=== PATIENT | female | born 1960 | race African-American/Black ===

== ENCOUNTER → 2017-01-01 | Outpatient (CLI) | payer OTHER ==
[~2017-01-01] MED LIST: AMLO10TA2 PO; HYDR25TA5 PO; LISI10TA PO; LISI20TA PO; LISI40TA PO; NYST15T TOPICAL
[2017-01-01 09:40] LABS: HDL CHOLESTEROL 46.2 MG/DL (40.0-60.0)
== END ==
LOC: CLAB 08:40
PROVIDERS: ATTEND Nurse Practitioner Family
DX: E78.5 Hyperlipidemia, unspecified (principal); E66.9 Obesity, unspecified
CPT/HCPCS: 36415; 80061; 84443

== ENCOUNTER → 2017-01-07 | Outpatient (CLI) | payer OTHER ==
[2017-01-07 10:16] LABS: AUTOMATED NEUTROPHIL # 4.3 TH/MM3 (1.8-7.7); BASOPHIL # 0.1 TH/MM3 (0-0.2); EOSINOPHIL # 0.1 TH/MM3 (0-0.4); EOSINOPHIL % 1.4 % (0.0-4.0); HEMATOCRIT 31.7 % (35.0-46.0); HEMO FLAGS DIFF FINAL; LYMPH % 34.8 % (9.0-44.0); LYMPHOCYTE # 2.7 TH/MM3 (1.0-4.8); MEAN CELL VOLUME 66.6 FL (80.0-100.0); MEAN CORPUSCULAR HEMOGLOBIN 20.6 PG (27.0-34.0); MEAN CORPUSCULAR HGB CONC 30.9 % (32.0-36.0); MONO % 7.2 % (0.0-8.0); NEUT % 55.6 % (16.0-70.0); PLATELET COUNT 457 TH/MM3 (150-450); RED BLOOD COUNT 4.76 MIL/MM3 (4.00-5.30); RED CELL DISTRIBUTION WIDTH 19.5 % (11.6-17.2); WHITE BLOOD COUNT 7.8 TH/MM3 (4.0-11.0)
[2017-01-07 10:48] LABS: ALKALINE PHOSPHATASE 77 U/L (45-117); ALT (GPT) 15 U/L (10-53); TOTAL BILIRUBIN ADULT 0.3 MG/DL (0.2-1.0)
[2017-01-07 10:55] LABS: ANION GAP 7 MEQ/L (5-15); AST (GOT) 21 U/L (15-37); BICARBONATE 28.9 MEQ/L (21.0-32.0); BLOOD UREA NITROGEN 14 MG/DL (7-18); CHLORIDE 106 MEQ/L (98-107); GLOMERULAR FILTRATION RATE 67 ML/MIN (>89); GLUCOSE,FASTING 76 MG/DL (74-99); POTASSIUM 3.7 MEQ/L (3.5-5.1); SODIUM (NA) 142 MEQ/L (136-145)
== END ==
LOC: CLAB 09:49
PROVIDERS: ATTEND Nurse Practitioner Family
DX: D64.9 Anemia, unspecified (principal); I10 Essential (primary) hypertension
CPT/HCPCS: 36415; 80053; 85025

== ENCOUNTER → 2017-01-18 | Outpatient (CLI) | payer OTHER ==
[~2017-01-18] MED LIST changes: -HYDR25TA5 PO; -LISI10TA PO; -LISI40TA PO; -NYST15T TOPICAL
--- NOTE | 2017-01-18 16:49 | RADRPT ---
EXAM DATE/TIME: 01/18/2017 14:52 [facility] COMPARISON: No previous studies available for comparison. INDICATIONS : Menorrhagia. MEDICAL HISTORY : Hypercholesterolemia. Hypertension. Ulcer. Diabetes. Anemia. SURGICAL HISTORY : section. ENCOUNTER: Initial ACUITY: 3 months PAIN SCORE: 0/10 LOCATION: Bilateral pelvis MEASUREMENTS: TRANSABDOMINAL: ENDOMETRIAL STRIPE: 13 mm RIGHT OVARY: 2.5 x 1.6 x 1.3 cm FINDINGS: UTERUS: The uterus is enlarged measuring 13.8 x 7.7 x 7.5 cm. The myometrium is heterogeneous. T he endometrial echo complex is thickened at 1.3 cm. There is a 0.6 cm nabothian cyst seen at the cerv ix. RIGHT OVARY: Ovary contains no mass or significant cystic lesion. LEFT OVARY: Ovary contains no mass or significant cystic lesion. MISCELLANEOUS: No free fluid. CONCLUSION: 1. Enlarged heterogenous uterus without focal masses. This likely represents leiomyomatous change. 2. Thickening of the endometrial complex. This is nonspecific. Hyperplasia and neoplasm could have t his appearance. Neil Richter MD on January 18, 2017 at 16:41 Board Certified Radiologist. This report was verified electronically.
== END ==
LOC: HRAD 14:25
PROVIDERS: ATTEND Family Medicine
DX: N92.0 Excessive and frequent menstruation with regular cycle (principal)
CPT/HCPCS: 76830; 76856

== ENCOUNTER 2017-02-24 00:07 | Inpatient (IN) | payer OTHER ==
[~2017-02-24] VITALS: Ht 162.6 cm; Wt 107.0 kg
[2017-02-24] VITALS (12 sets, daily range): BP systolic 91–220; BP diastolic 56–100; PULSE 64–78; RESP 16–20; TEMP 97.3–97.5; O2SAT 94–100
[~2017-02-24 00:07] MED LIST changes: +HYDR25TA5 PO; -LISI20TA PO; +LISI40TA PO; +NYST15T TOPICAL
--- NOTE | 2017-02-24 01:19 | PD ---
HPI Chief Complaint: Altered Mental Status Time Seen by Provider: 01:02 Travel History International Travel<30 days: No Contact w/Intl Traveler<30days: No Traveled to known affect area: No History of Present Illness HPI The patient is a 56 year old female who presents to the [facility] emergency department with a history of confusion and slightly slurred speech that was first noticed by her daughter at approximately 9:50 PM this evening. The patient was out with her daughter cleaning. Her daughter owns a cleaning company. Her mother was noted to be unsteady on her feet. She was confused and picking at the air, not acting like her usual self and cleaning. The patient's daughter reports that she has not been well for the last 2 days. She had been complaining of a stomach ache and has had nausea and vomiting 1 yesterday. She has not had any diarrhea. The patient denies any acute complaints at this time. The patient is confused and has difficulty staying on track with following commands and answering questions. The patient's history is mainly obtained from the patient's daughter as the patient has difficulty recalling her medical history as well as any of her recent symptoms. On review of systems, the patient's daughter denies her having any fever, cough, congestion, complaints of neck pain, chest pain, or shortness of breath. She has not had any known diarrhea. She is unsure when she last moved her bowels. She denies having any urinary symptoms. She denies having any known one-sided weakness, facial droop, dizziness, or difficulty with word finding ability. Her denies her drinking any alcohol or using any street drugs. Her daughter denies her taking any new [id number] medications or other new prescribed medicines. [facility], [facility] Past Medical History Narrative Medical The patient's past medical history is significant for hypertension, hyperlipidemia, and anemia. The patient has no known prior history of TIA or cerebrovascular accident. Anemia: Yes Cardiovascular Problems: Yes (HTN) Diabetes: No Hypertension: Yes (hasn't taken for approx 2 days or so) : 2 Para: 2 Past Surgical History Narrative Surgical The patient's past surgical history is reportedly none. Surgical History: No Previous Surgery Social History Alcohol Use: No Tobacco Use: No Substance Use: No Allergies-Medications (Allergen,Severity, Reaction): Coded Allergies: No Known Allergies (Verified , 02/24/17) Reported Meds & Prescriptions Reported Meds & Active Scripts Active Hydrochlorothiazide 25 Mg Tab 25 Mg PO DAILY Lisinopril 40 Mg Tab 40 Mg PO DAILY Nystatin Topical (Nystatin) 100,000 unit/gm Cream 1 Applic TOPICAL BID Amlodipine (Amlodipine Besylate) 10 Mg Tab 10 Mg PO DAILY She is followed through the patient assistance program for her primary care. Review of Systems Except as stated in HPI: all other systems reviewed are Neg General / Constitutional: No: Fever Eyes: No: Visual changes HENT: No: Headaches Cardiovascular: No: Chest Pain or Discomfort Respiratory: No: Shortness of Breath Gastrointestinal: Positive: Nausea, Vomiting, Abdominal Pain, Loss of Appetite , No: Diarrhea, Changes in Bowel Habits, Indigestion Genitourinary: No: Dysuria Musculoskeletal: No: Pain Skin: No Rash Neurologic: Positive: Weakness (generalized weakness), Change in Mentation, Slurred Speech, No: Focal Abnormalities, Sensory Disturbance Psychiatric: No: Depression Endocrine: No: Polydipsia Hematologic/Lymphatic: No: Easy Bruising Physical Exam Narrative General: The patient is a well-developed well-nourished female in no acute distress. Head and Neck exam: Head is normocephalic atraumatic. Eyes: EOMI, pupils are equal round and reactive to light. Nose: Midline septum with pink mucous membranes Mouth: Dentition unremarkable. Moist mucus membranes. Posterior oropharynx is not erythematous. No tonsillar hypertrophy. Uvula midline. Airway patent. Neck: No palpable lymphadenopathy. No nuchal rigidity. No thyromegaly. Cardiovascular: Regular rate and rhythm without murmurs, gallops, or rubs. Lungs: Clear to auscultation bilaterally. No wheezes, rhonchi, or rales. Abdomen: Soft, without tenderness to palpation in all 4 quadrants of the abdomen. No guarding, rebound, or rigidity. Normal bowel sounds are audible. No tenderness on palpation of McBurney's point. Negative High View sign. Extremities: No clubbing, cyanosis, or edema. 2+ pulses in all 4 extremities. Back: No costovertebral angle tenderness to palpation. Neurologic Exam: Cranial nerves 2-12 were intact on exam. Strength is 5/5 in all 4 extremities. No sensory deficits noted. The patient is oriented to person, however otherwise seems confused on examination. The patient has difficulty staying on task to perform the formal neurologic examination, however when she is redirected she is able to cooperate fully. She seems to be easily distracted. Skin Exam: No rash noted. Intact skin that is warm and dry. Data Data Last Documented VS Vital Signs Date Time Temp Pulse Resp B/P Pulse Ox O2 Delivery O2 Flow Rate FiO2 02/24/17 03:34 72 16 145/86 Room Air 02/24/17 02:32 97 02/24/17 00:13 97.5 Orders Electrocardiogram (02/24/17 01:05) Complete Blood Count With Diff (02/24/17 01:05) Comprehensive Metabolic Panel (02/24/17 01:05) Creatine Kinase (Cpk) (02/24/17 01:05) Ckmb (Isoenzyme) Profile (02/24/17 01:05) Troponin I (02/24/17 01:05) B-Type Natriuretic Peptide (02/24/17 01:05) Prothrombin Time / Inr (Pt) (02/24/17 01:05) Act Partial Throm Time (Ptt) (02/24/17 01:05) Lipase (02/24/17 01:05) Urinalysis - C+S If Indicated (02/24/17 01:05) Magnesium (Mg) (02/24/17 01:05) Ammonia (02/24/17 01:05) Thyroid Stimulating Hormone (02/24/17 01:05) Chest, Single Ap (02/24/17 01:05) Ct Brain W/O Iv Contrast(Rout) (02/24/17 01:05) Iv Access Insert/Monitor (02/24/17 01:05) Ecg Monitoring (02/24/17 01:05) Oximetry (02/24/17 01:05) Drug Screen, Random Urine (02/24/17 01:05) Alcohol (Ethanol) (02/24/17 01:05) Cath For Specimen (02/24/17 01:08) Sodium Chlorid 0.9% 500 Ml Inj (Ns 500 M (02/24/17 01:30) Sodium Chlor 0.9% 1000 Ml Inj (Ns 1000 M (02/24/17 02:45) Sodium Chlorid 0.9% 500 Ml Inj (Ns 500 M (02/24/17 03:45) CKMB (02/24/17 02:45) CKMB% (02/24/17 02:45) Admit Order (Ed Use Only) (02/24/17 03:59) Labs Laboratory Tests Test 02/24/17 02/24/17 02/24/17 01:19 02:45 03:40 White Blood Count 13.9 TH/MM3 Red Blood Count 4.76 MIL/MM3 Hemoglobin 10.6 GM/DL Hematocrit 32.7 % Mean Corpuscular Volume 68.8 FL Mean Corpuscular Hemoglobin 22.4 PG Mean Corpuscular Hemoglobin 32.5 % Concent Red Cell Distribution Width 21.4 % Platelet Count 496 TH/MM3 Mean Platelet Volume 9.3 FL Neutrophils (%) (Auto) 66.8 % Lymphocytes (%) (Auto) 21.8 % Monocytes (%) (Auto) 10.7 % Eosinophils (%) (Auto) 0.3 % Basophils (%) (Auto) 0.4 % Neutrophils # (Auto) 9.2 TH/MM3 Lymphocytes # (Auto) 3.0 TH/MM3 Monocytes # (Auto) 1.5 TH/MM3 Eosinophils # (Auto) 0.0 TH/MM3 Basophils # (Auto) 0.1 TH/MM3 CBC Comment DIFF FINAL Differential Comment Prothrombin Time 11.4 SEC Prothromb Time International 1.0 RATIO Ratio Activated Partial 29.0 SEC Thromboplast Time Ammonia 16 MCMOL/L B-Type Natriuretic Peptide 4 PG/ML Sodium Level 133 MEQ/L Potassium Level 2.9 MEQ/L Chloride Level 95 MEQ/L Carbon Dioxide Level 26.4 MEQ/L Anion Gap 12 MEQ/L Blood Urea Nitrogen 51 MG/DL Creatinine 5.33 MG/DL Estimat Glomerular Filtration 10 ML/MIN Rate Random Glucose 102 MG/DL Calcium Level 8.6 MG/DL Magnesium Level 3.4 MG/DL Total Bilirubin 0.3 MG/DL Aspartate Amino Transf 19 U/L (AST/SGOT) Alanine Aminotransferase 21 U/L (ALT/SGPT) Alkaline Phosphatase 76 U/L Total Creatine Kinase 138 U/L Creatine Kinase MB 0.9 NG/ML Troponin I LESS THAN 0.02 NG/ML Total Protein 8.9 GM/DL Albumin 3.3 GM/DL Lipase 343 U/L Thyroid Stimulating Hormone 0.169 uIU/ML 3rd Gen Ethyl Alcohol Level LESS THAN 3 MG/DL Urine Color YELLOW Urine Turbidity CLOUDY Urine pH 5.5 Urine Specific [place] 1.022 Urine Protein 100 mg/dL Urine Glucose (UA) NEG mg/dL Urine Ketones NEG mg/dL Urine Occult Blood LARGE Urine Nitrite NEG Urine Bilirubin NEG Urine Urobilinogen 2.0 MG/DL Urine Leukocyte Esterase MOD Urine RBC /hpf Urine WBC 27 /hpf Urine Squamous Epithelial 4 /hpf Cells Urine Amorphous Sediment RARE Urine Bacteria MOD /hpf Urine Hyaline Casts 119 /lpf Urine Granular Casts 9 /lpf Urine Mucus MANY /lpf Microscopic Urinalysis Comment CULTURE INDICATED Urine Opiates Screen NEG Urine Barbiturates Screen NEG Urine Amphetamines Screen NEG Urine Benzodiazepines Screen NEG Urine Cocaine Screen NEG Urine Cannabinoids Screen NEG MDM Medical Decision Making Medical Screen Exam Complete: Yes Emergency Medical Condition: Yes Medical Record Reviewed: Yes Interpretation(s) Last Impressions Head CT 02/24/17104 Signed Impressions: Service Date/Time: Friday, February 24, 2017 02:36 - CONCLUSION: No acute intracranial abnormality is identified. There is periventricular white matter low attenuation likely representing chronic microvascular ischemia. Neil Gaines MD Chest X-Ray 02/24/17104 Signed Impressions: Service Date/Time: Friday, February 24, 2017 01:04 - CONCLUSION: No acute cardiopulmonary abnormality is identified. Neil Gaines MD Differential Diagnosis Alcohol versus other substance intoxication, versus delirium related to an acute infection such as a urinary tract infection, versus pneumonia, versus hepatic encephalopathy, versus other metabolic encephalopathy Narrative Course During the course of the patients emergency department visit, the patients history, examination, and differential diagnosis were reviewed with the patient. The patient had IV access obtained and blood work sent for analysis. 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 A chest x-ray, CT scan of the brain was ordered. An in and out catheterization will be done. The patient had an ECG done on arrival. The patient's ECG reveals a sinus rhythm heart rate is 71, no acute ST segment elevation. The patient is noted to have downsloping ST segments in lead 2, 3, aVF, V5, V6 with T-wave inversions in V5, V6, lead 3, aVF. The patient was initially provided a normal saline IV fluid bolus of 500 mL. The patients laboratory studies were reviewed and remarkable for BNP is within normal limits, the patient was given another fluid bolus of 1 L IV, the patient has had poor by mouth intake for the last couple of days according to her daughter. The patient had a Yang catheter placed to gravity. The patient had very little urine output noted. The patient was given a second bolus of normal saline 1 L IV fluids. CBC was remarkable for a white count of 13.9, hemoglobin 10.6, platelets 496 with 10.7 monocytes, CMP is remarkable for sodium of 133, potassium 2.9, chloride 95, BUN 51, creatinine 5.33, GFR of 10, magnesium 3.4, CPK 138, troponin I less than 0.02, total protein 8.9, albumin 3.3, lipase 343, TSH 0.169, urine drug screen is negative, alcohol level less than 3, urinalysis shows 100 protein, large occult blood, moderate leukocyte esterase, innumerable rbc's, wbc's 27, moderate bacteria, culture indicated. The patient was given Rocephin 1 g IV. Radiology studies were reviewed and remarkable for a chest x-ray that shows no acute cardiopulmonary abnormality. CT scan of the abdomen and pelvis shows no acute intracranial abnormality. The patient has. Ventricular white matter low attenuation likely representing chronic microvascular ischemia. The patient's altered mentation could be related to uremia from her acute renal failure. The patients results were discussed with the patient, including the plan of care. I explained that further testing and/ or monitoring is indicated based on the patients history, examination, and/ or laboratory findings. Therefore, I recommended admission for additional evaluation. The patient expressed understanding and was agreeable with this plan. The patient was admitted to the hospital in stable condition and [facility] Physician Communication Physician Communication The patient's case was discussed with Dr. Soria who did agree to admit the patient further evaluation and treatment at this time. Diagnosis Primary Impression: Acute renal failure Qualified Code: N17.9 - Acute renal failure, unspecified acute renal failure type Additional Impression: Altered mental status Qualified Code: R41.0 - Delirium Admitting Information Admitting Physician Requests: Admit Milagro Tanner MD Feb 24, 2017 01:19
[2017-02-24] MEDS ORDERED: SODIUM CHLORID 0.9% 500 ML INJ 500 ML IV ONE ×2 (01:30→03:45)
[2017-02-24 01:32] LABS: AUTOMATED NEUTROPHIL # 9.2 TH/MM3 (1.8-7.7); BASOPHIL # 0.1 TH/MM3 (0-0.2); BASOPHIL % 0.4 % (0.0-2.0); EOSINOPHIL % 0.3 % (0.0-4.0); HEMATOCRIT 32.7 % (35.0-46.0); HEMO FLAGS DIFF FINAL; LYMPH % 21.8 % (9.0-44.0); MEAN CELL VOLUME 68.8 FL (80.0-100.0); MEAN CORPUSCULAR HEMOGLOBIN 22.4 PG (27.0-34.0); MEAN CORPUSCULAR HGB CONC 32.5 % (32.0-36.0); MONO % 10.7 % (0.0-8.0); NEUT % 66.8 % (16.0-70.0); PLATELET COUNT 496 TH/MM3 (150-450); RED BLOOD COUNT 4.76 MIL/MM3 (4.00-5.30); RED CELL DISTRIBUTION WIDTH 21.4 % (11.6-17.2); WHITE BLOOD COUNT 13.9 TH/MM3 (4.0-11.0)
--- NOTE | 2017-02-24 01:39 | RADRPT ---
EXAM DATE/TIME: 02/24/2017 01:04 [facility] COMPARISON: No previous studies available for comparison. INDICATIONS : Shortness of breath. MEDICAL HISTORY : Hypertension. Diabetes mellitus type II. SURGICAL HISTORY : None. ENCOUNTER: Initial ACUITY: 1 day PAIN SCORE: Non-responsive. LOCATION: Bilateral chest FINDINGS: Portable AP view of the chest demonstrates a normal-sized cardiac silhouette. No effusion, consolidat ion, or pneumothorax is visualized. The bones and soft tissues demonstrate no acute abnormality. Lung s are underinflated. CONCLUSION: No acute cardiopulmonary abnormality is identified. Neil Gaines MD on February 24, 2017 at 1:35 Board Certified Radiologist. This report was verified electronically.
[2017-02-24 02:06] LABS: PROTHROMBIN TIME - PATIENT 11.4 SEC (9.8-11.6)
[2017-02-24] MEDS ORDERED: SODIUM CHLOR 0.9% 1000 ML INJ 1,000 ML IV ONE (02:45)
--- NOTE | 2017-02-24 02:46 | RADRPT ---
EXAM DATE/TIME: 02/24/2017 02:36 [facility] COMPARISON: No previous studies available for comparison. INDICATIONS : Altered mental status. Slurred speech. RADIATION DOSE: 32.82 CTDIvol (mGy) MEDICAL HISTORY : Hypertension. SURGICAL HISTORY : section. ENCOUNTER: Initial ACUITY: 1 day PAIN SCALE: 0/10 LOCATION: cranial TECHNIQUE: Multiple contiguous axial images were obtained of the head. Using automated exposure control and adj ustment of the mA and/or kV according to patient size, radiation dose was kept as low as reasonably a chievable to obtain optimal diagnostic quality images. DICOM format image data is available electro nically for review and comparison. FINDINGS: CEREBRUM: Ventricles are normal in size. There is bilateral basal ganglia calcification. Low-attenuation is pre sent in the periventricular regions bilaterally. No evidence of midline shift, mass lesion, hemorrha ge or acute infarction. No extra-axial fluid collections are seen. POSTERIOR FOSSA: The cerebellum and brainstem demonstrate no acute finding. The 4th ventricle is midline. The cerebe llopontine angle is unremarkable. EXTRACRANIAL: Visualized sinuses are clear. SKULL: The calvaria is intact. No evidence of skull fracture. CONCLUSION: No acute intracranial abnormality is identified. There is periventricular white matter low attenuatio n likely representing chronic microvascular ischemia. Neil Gaines MD on February 24, 2017 at 2:42 Board Certified Radiologist. This report was verified electronically.
[2017-02-24 03:50] LABS: ALKALINE PHOSPHATASE 76 U/L (45-117); ALT (GPT) 21 U/L (10-53); ANION GAP 12 MEQ/L (5-15); AST (GOT) 19 U/L (15-37); BICARBONATE 26.4 MEQ/L (21.0-32.0); BLOOD UREA NITROGEN 51 MG/DL (7-18); CHLORIDE 95 MEQ/L (98-107); CREATINE KINASE 138 U/L (26-192); GLOMERULAR FILTRATION RATE 10 ML/MIN (>89); MAGNESIUM 3.4 MG/DL (1.5-2.5); SODIUM (NA) 133 MEQ/L (136-145); TOTAL BILIRUBIN ADULT 0.3 MG/DL (0.2-1.0)
[2017-02-24 03:51] LABS: POTASSIUM 2.9 MEQ/L (3.5-5.1)
[2017-02-24 04:04] LABS: CKMB 0.9 NG/ML (0.5-3.6)
[2017-02-24 04:06] LABS: AMPHETAMINE, URINE NEG (NEG); BACTERIA, URINE MOD /hpf; BARBITURATES, URINE NEG (NEG); BLOOD, URINE LARGE (NEG); COCAINE, URINE NEG (NEG); COMMENT (UR) CULTURE INDICATED; CULTURE IF INDICATED CULTURE INDICATED; GLUCOSE,URINE NEG (NEG); GRANULAR CAST, URINE 9 /lpf; HYALINE CAST, URINE 119 /lpf (RARE); KETONE, URINE NEG (NEG); MUCUS URINE MANY /lpf (OCC); NITRITE,URINE NEG (NEG); PH, URINE 5.5 (5.0-8.5); SQUAMOUS EPITHELIAL CELL URINE 4 /hpf (0-5); URINE COLOR YELLOW (YELLW/STRAW)
[2017-02-24] MEDS ORDERED: POTASSIUM CHLORIDE 20 MEQ CONTROLLED RELEASE TAB PO ONE ×2 (04:15→10:30)
[2017-02-24] MEDS ORDERED: cefTRIAXone INJ 1,000 MG in SODIUM CHLORIDE 0.9% INJ 100 ML IV ONE (04:45)
[2017-02-24] MEDS ORDERED: NALOXONE HCL 0.4 MG/ML AMP IV PRN ×2 (05:00→10:00)
[2017-02-24] MEDS ORDERED: SODIUM CHLORIDE 0.9% FLUSH 10 ML FLUSH IV FLUSH PRN ×2 (05:00→10:00)
[2017-02-24] MEDS ORDERED: SODIUM CHLORIDE 0.9% FLUSH 10 ML FLUSH IV FLUSH SCH (09:00)
--- NOTE | 2017-02-24 09:46 | HHI.HP ---
[facility] Service [facility] Primary Care Physician Katie Elizabeth MD Admission Diagnosis AMS, Acute renal failure Diagnoses: (1) Acute metabolic encephalopathy (2) UTI (urinary tract infection) (3) Acute renal failure (4) Hypokalemia (5) Hypertension Chief Complaint: AMS Travel History International Travel<30 Days: No Contact w/Intl Traveler <30 Da: No Traveled to Known Affected Are: No History of Present Illness 56-year-old female with a history of hypertension, hyperlipidemia was brought in yesterday to the ED for evaluation of worsening confusion and slurred speech by daughter as well as unsteadiness on her feet. Per EMR patient was confused and picking at the air, not acting like her usual septic cleaning. Apparently, patient has been complaining of stomach ache with nausea along with 1 emesis 1 on 02/23/17 however no reported diarrhea episodes. On admission patient has elevated WBC as well as BUN/creatinine 51/5.33. Head CT as well as chest x-ray was unremarkable however she had abnormal UA. During my exam, patient although slow in her Cerner she was alert and oriented to self but not to date. She denies any chest pain or shortness of breath. Vitals stable. Review of Systems Except as stated in HPI: all other systems reviewed are Neg Past Family Social History Past Medical History Hypertension Hyperlipidemia Reflux Past Surgical History Reported Medications Hydrochlorothiazide 25 Mg Tab 25 Mg PO DAILY Lisinopril 40 Mg Tab 40 Mg PO DAILY Nystatin Topical (Nystatin) 100,000 unit/gm Cream 1 Applic TOPICAL BID Amlodipine (Amlodipine Besylate) 10 Mg Tab 10 Mg PO DAILY Allergies: Coded Allergies: No Known Allergies (Verified , 02/24/17) Family History Denies any family history of heart disease Social History Patient denies tobacco, alcohol or illicit drug intake Physical Exam Vital Signs Vital Signs Date Time Temp Pulse Resp B/P Pulse Ox O2 Delivery O2 Flow Rate FiO2 02/24/17 03:34 72 16 145/86 Room Air 02/24/17 02:32 97 Room Air 02/24/17 00:53 68 16 114/56 100 Room Air 02/24/17 00:50 Room Air 02/24/17 00:13 97.5 73 16 91/69 95 Room Air Physical Exam GENERAL: This is a well-nourished, well-developed patient, in no apparent distress. SKIN: No rashes, ecchymoses or lesions. Cool and dry. HEAD: Atraumatic. Normocephalic. No temporal or scalp tenderness. EYES: Pupils equal round and reactive. Extraocular motions intact. No scleral icterus. No injection or drainage. ENT: Nose without bleeding, purulent drainage or septal hematoma. Throat without erythema, tonsillar hypertrophy or exudate. Uvula midline. Airway patent. NECK: Trachea midline. No JVD or lymphadenopathy. Supple, nontender, no meningeal signs. CARDIOVASCULAR: Regular rate and rhythm without murmurs, gallops, or rubs. RESPIRATORY: Clear to auscultation. Breath sounds equal bilaterally. No wheezes , rales, or rhonchi. GASTROINTESTINAL: Abdomen soft, non-tender, nondistended. No hepato-splenomegaly , or palpable masses. No guarding. MUSCULOSKELETAL: Extremities without clubbing, cyanosis, or edema. No joint tenderness, effusion, or edema noted. No calf tenderness. Negative Homans sign bilaterally. NEUROLOGICAL: Awake and alert. Cranial nerves II through XII intact. Motor and sensory grossly within normal limits. Five out of 5 muscle strength in all muscle groups. Normal speech. Laboratory Laboratory Tests Test 02/24/17 02/24/17 02/24/17 01:19 02:45 03:40 White Blood Count 13.9 Red Blood Count 4.76 Hemoglobin 10.6 Hematocrit 32.7 Mean Corpuscular Volume 68.8 Mean Corpuscular Hemoglobin 22.4 Mean Corpuscular Hemoglobin 32.5 Concent Red Cell Distribution Width 21.4 Platelet Count 496 Mean Platelet Volume 9.3 Neutrophils (%) (Auto) 66.8 Lymphocytes (%) (Auto) 21.8 Monocytes (%) (Auto) 10.7 Eosinophils (%) (Auto) 0.3 Basophils (%) (Auto) 0.4 Neutrophils # (Auto) 9.2 Lymphocytes # (Auto) 3.0 Monocytes # (Auto) 1.5 Eosinophils # (Auto) 0.0 Basophils # (Auto) 0.1 CBC Comment DIFF FINAL Differential Comment Prothrombin Time 11.4 Prothromb Time International 1.0 Ratio Activated Partial 29.0 Thromboplast Time Ammonia 16 B-Type Natriuretic Peptide 4 Sodium Level 133 Potassium Level 2.9 Chloride Level 95 Carbon Dioxide Level 26.4 Anion Gap 12 Blood Urea Nitrogen 51 Creatinine 5.33 Estimat Glomerular Filtration 10 Rate Random Glucose 102 Calcium Level 8.6 Magnesium Level 3.4 Total Bilirubin 0.3 Aspartate Amino Transf 19 (AST/SGOT) Alanine Aminotransferase 21 (ALT/SGPT) Alkaline Phosphatase 76 Total Creatine Kinase 138 Creatine Kinase MB 0.9 Troponin I LESS THAN 0.02 Total Protein 8.9 Albumin 3.3 Lipase 343 Thyroid Stimulating Hormone 0.169 3rd Gen Ethyl Alcohol Level LESS THAN 3 Urine Color YELLOW Urine Turbidity CLOUDY Urine pH 5.5 Urine Specific [place] 1.022 Urine Protein 100 Urine Glucose (UA) NEG Urine Ketones NEG Urine Occult Blood LARGE Urine Nitrite NEG Urine Bilirubin NEG Urine Urobilinogen 2.0 Urine Leukocyte Esterase MOD Urine RBC Urine WBC 27 Urine Squamous Epithelial 4 Cells Urine Amorphous Sediment RARE Urine Bacteria MOD Urine Hyaline Casts 119 Urine Granular Casts 9 Urine Mucus MANY Microscopic Urinalysis Comment CULTURE INDICATED Urine Opiates Screen NEG Urine Barbiturates Screen NEG Urine Amphetamines Screen NEG Urine Benzodiazepines Screen NEG Urine Cocaine Screen NEG Urine Cannabinoids Screen NEG Date/Time Procedure Status Source Growth 02/24/17 03:40 Urine Culture Received Urine Random Urine Pending Result Diagram: 02/24/179 02/24/17244 Imaging Last Impressions Head CT 02/24/17104 Signed Impressions: Service Date/Time: Friday, February 24, 2017 02:36 - CONCLUSION: No acute intracranial abnormality is identified. There is periventricular white matter low attenuation likely representing chronic microvascular ischemia. Neil Gaines MD Chest X-Ray 02/24/17104 Signed Impressions: Service Date/Time: Friday, February 24, 2017 01:04 - CONCLUSION: No acute cardiopulmonary abnormality is identified. Neil Gaines MD Assessment and Plan Problem List: (1) Acute metabolic encephalopathy ICD Code: G93.41 Status: Acute (2) UTI (urinary tract infection) ICD Code: N39.0 Status: Acute (3) Hypokalemia ICD Code: E87.6 Status: Acute (4) Hypertension ICD Code: I10 Status: Acute Assessment and Plan 56-year-old female with Acute metabolic encephalopathy Head CT noted and review by me without any acute finding. Will check brain MRI to rule out CVA Chest x-ray noted and review by me without any cardio pulmonary disease Worsening BUN/creatinine......> questionable uremic encephalopathy Check ammonia level UDS and alcohol level within normal limit Abnormal UA.... Likely cause of encephalopathy? UTI: Status post Rocephin IV 1 in ED, continue with Rocephin daily pending urine culture Acute renal failure Appears to be prerenal Check renal ultrasound Start aggressive IV fluid hydration, avoid all nephrotoxic drugs including LEONARD inhibitor and hydrochlorothiazide Consider Consult nephrology Hypokalemia Replace electrolyte with 60 mEq 1 now Hyponatremia Continue IV fluid hydration and monitor lab in a.m. Normochromic normocytic anemia-likely of chronic disease Check iron study Hypertension Resume outpatient medications DVT prophylaxis: Bilateral SCDs Code Status Full code Discussed Condition With Patient Physician Certification 2 Midnight Certification Type: Admission for Inpatient Services Order for Inpatient Services The services are ordered in accordance with Medicare regulations or non- Medicare payer requirements, as applicable. In the case of services not specified as inpatient-only, they are appropriately provided as inpatient services in accordance with the 2-midnight benchmark. Estimated LOS (days): 2 days is the estimated time the patient will need to remain in the hospital, assuming treatment plan goals are met and no additional complications. Post-Hospital Plan: Not yet determined Problem Qualifiers (1) Acute renal failure: Qualified Code: N17.9 - Acute renal failure, unspecified acute renal failure type Rick Hampton MD Feb 24, 2017 09:46
[2017-02-24] MEDS ORDERED: ONDANSETRON HCL 4 MG/2 ML VIAL IVP PRN (10:00)
[2017-02-24] MEDS ORDERED: ACETAMINOPHEN 325 MG TAB PO PRN ×2 (10:00)
[2017-02-24] MEDS ORDERED: MAGNESIUM HYDROXIDE SUSP 30 ML CUP PO PRN (10:00)
[2017-02-24] MEDS: SODIUM CHLOR 0.9% 1000 ML INJ 1,000 ML IV SCH ×3 (10:52→20:30)
[2017-02-24] MEDS ORDERED: cloNIDine HCL 0.2 MG TAB PO PRN (12:00)
--- NOTE | 2017-02-24 12:04 | RADRPT ---
EXAM DATE/TIME: 02/24/2017 09:59 [facility] COMPARISON: No previous studies available for comparison. INDICATIONS : Increased BUN/creatinine. MEDICAL HISTORY : Hypercholesterolemia. Hypertension. Hyperlipidemia. Ulcer. Anemia. SURGICAL HISTORY : section. ENCOUNTER: Subsequent ACUITY: 1 day PAIN SCORE: 0/10 LOCATION: Bilateral flank MEASUREMENTS: RIGHT KIDNEY: 10.2 x 4.9 x 4.4 cm LEFT KIDNEY: 10.9 x 4.7 x 5.1 cm FINDINGS: RIGHT KIDNEY: Renal cortex is normal in thickness and echotexture. No hydronephrosis, stone, or mass. LEFT KIDNEY: Renal cortex is normal in thickness and echotexture. No hydronephrosis, stone, or mass. BLADDER: Within normal limits given the degree of distension. CONCLUSION: 1. Unremarkable renal ultrasound exam. No evidence for obstructive uropathy. Satnam Moulton MD on February 24, 2017 at 11:59 Board Certified Radiologist. This report was verified electronically.
[2017-02-24 16:14] LABS: TRANSFERRIN IRON PROFILE 199 MG/DL (200-360)
[2017-02-24] MEDS: SODIUM CHLORIDE 0.9% FLUSH 10 ML FLUSH IV FLUSH SCH (20:30)
--- NOTE | 2017-02-24 20:45 | EKG ---
Date Performed: 02/24/2017 Time Performed: 03:01:07 PTAGE: 56 years EKG: Sinus rhythm MODERATE ST-T ABNORMALITY PREVIOUS TRACING : 06/03/2012 09.07 Compared to prior tracing no significant change DOCTOR: Bessy Daniel Interpretating Date/Time 02/24/2017 20:44:14
[2017-02-24] MEDS: LACTOBACILLUS ACIDOPHILUS TAB PO SCH (22:27)
[2017-02-25] VITALS (7 sets, daily range): BP systolic 99–150; BP diastolic 55–81; PULSE 65–77; RESP 18–20; TEMP 98.1–99; O2SAT 97–99
[2017-02-25 07:21] LABS: AUTOMATED NEUTROPHIL # 5.8 TH/MM3 (1.8-7.7); BASOPHIL # 0.1 TH/MM3 (0-0.2); BASOPHIL % 0.6 % (0.0-2.0); EOSINOPHIL # 0.1 TH/MM3 (0-0.4); EOSINOPHIL % 0.6 % (0.0-4.0); HEMATOCRIT 26.8 % (35.0-46.0); HEMO FLAGS DIFF FINAL; LYMPHOCYTE # 2.9 TH/MM3 (1.0-4.8); MEAN CELL VOLUME 69.3 FL (80.0-100.0); MEAN CORPUSCULAR HEMOGLOBIN 22.1 PG (27.0-34.0); MEAN CORPUSCULAR HGB CONC 31.9 % (32.0-36.0); NEUT % 58.8 % (16.0-70.0); PLATELET COUNT 334 TH/MM3 (150-450); RED BLOOD COUNT 3.86 MIL/MM3 (4.00-5.30); RED CELL DISTRIBUTION WIDTH 20.8 % (11.6-17.2); WHITE BLOOD COUNT 9.8 TH/MM3 (4.0-11.0)
[2017-02-25 08:24] LABS: ALKALINE PHOSPHATASE 58 U/L (45-117); ALT (GPT) 13 U/L (10-53); ANION GAP 10 MEQ/L (5-15); AST (GOT) 9 U/L (15-37); BICARBONATE 19.8 MEQ/L (21.0-32.0); BLOOD UREA NITROGEN 38 MG/DL (7-18); CHLORIDE 110 MEQ/L (98-107); GLOMERULAR FILTRATION RATE 39 ML/MIN (>89); POTASSIUM 3.7 MEQ/L (3.5-5.1); SODIUM (NA) 140 MEQ/L (136-145); TOTAL BILIRUBIN ADULT 0.3 MG/DL (0.2-1.0)
[2017-02-25] MEDS: cefTRIAXone INJ 1,000 MG in SODIUM CHLORIDE 0.9% INJ 100 ML IV SCH (09:03)
[2017-02-25] MEDS: LACTOBACILLUS ACIDOPHILUS TAB PO SCH ×2 (09:03→22:40)
[2017-02-25] MEDS: SODIUM CHLORIDE 0.9% FLUSH 10 ML FLUSH IV FLUSH SCH ×2 (09:04→21:00)
[2017-02-25] MEDS: SODIUM CHLOR 0.9% 1000 ML INJ 1,000 ML IV SCH ×2 (09:05→17:43)
--- NOTE | 2017-02-25 11:43 | RADRPT ---
EXAM DATE/TIME: 02/25/2017 11:09 [facility] COMPARISON: CT BRAIN W/O CONTRAST, February 24, 2017, 2:36. INDICATIONS : CVA. MEDICAL HISTORY : Hypertension. SURGICAL HISTORY : None. ENCOUNTER: Initial ACUITY: 1 day PAIN SCORE: 0/10 LOCATION: Head. TECHNIQUE: Multiplanar, multisequence MRI of the brain was performed without contrast. FINDINGS: Mild periventricular and subcortical white matter small vessel ischemic changes are noted bilaterally . Old lacunar infarcts are noted within the bilateral basal ganglia and left rupa. The ventricles, sulci and cisterns are normal in size, shape and position for the patient's age. There is no acute i nfarct, acute hemorrhage, midline shift or extra-axial fluid collections. The sagittal images demons trate normal midline structures including the corpus callosum, pituitary gland and craniocervical thony ction. CONCLUSION: 1. Scattered old tiny lacunar infarcts within the bilateral basal ganglia and left rupa. 2. Mild periventricular and subcortical white matter small vessel ischemic changes bilaterally. 3. No acute infarct, acute hemorrhage, mass effect or extra-axial fluid collections. Alex Castellano MD on February 25, 2017 at 11:31 Board Certified Radiologist. This report was verified electronically.
--- NOTE | 2017-02-25 13:01 | HHI.PR ---
Subjective Remarks Follow-up metabolic encephalopathy/acute renal failure 02/25/17-patient seen and examined, improving renal indices as well as mentation. Patient states she is still having her menses and she has not gone to menopause yet although she is 56 years old and she reports DUB Objective Vitals Vital Signs Date Time Temp Pulse Resp B/P Pulse Ox O2 Delivery O2 Flow Rate FiO2 02/25/17 08:00 98.5 65 20 105/55 98 02/25/17 05:01 99.0 70 18 101/59 97 02/25/17 00:59 98.9 68 18 99/55 97 02/24/17 23:00 73 02/24/17 21:16 97.3 71 18 133/63 96 02/24/17 19:45 69 18 140/77 100 Room Air 02/24/17 15:28 64 16 113/58 98 Room Air I/O 02/24/17 02/24/17 02/24/17 02/25/17 02/25/17 02/25/17 06:59 14:59 22:59 06:59 14:59 22:59 Output Total 900 ml 800 ml Balance -900 ml -800 ml Output Urine Total 900 ml 800 ml # Bowel Movements 0 Result Diagram: 02/25/17 0644 02/25/17 0644 Imaging Last Impressions Brain MRI 02/25/17 0000 Signed Impressions: Service Date/Time: January 11:09 - CONCLUSION: 1. Scattered old tiny lacunar infarcts within the bilateral basal ganglia and left rupa. 2. Mild periventricular and subcortical white matter small vessel ischemic changes bilaterally. 3. No acute infarct, acute hemorrhage, mass effect or extra- axial fluid collections. Alex Castellano MD Head CT 02/24/17104 Signed Impressions: Service Date/Time: Friday, February 24, 2017 02:36 - CONCLUSION: No acute intracranial abnormality is identified. There is periventricular white matter low attenuation likely representing chronic microvascular ischemia. Neil Gaines MD Chest X-Ray 02/24/17104 Signed Impressions: Service Date/Time: Friday, February 24, 2017 01:04 - CONCLUSION: No acute cardiopulmonary abnormality is identified. Neil Gaines MD Renal Ultrasound 02/24/17 0000 Signed Impressions: Service Date/Time: Friday, February 24, 2017 09:59 - CONCLUSION: 1. Unremarkable renal ultrasound exam. No evidence for obstructive uropathy. Satnam Moulton MD Objective Remarks GENERAL: NAD SKIN: Warm and dry. HEAD: Normocephalic. EYES: No scleral icterus. No injection or drainage. NECK: Supple, trachea midline. No JVD or lymphadenopathy. CARDIOVASCULAR: Regular rate and rhythm without murmurs, gallops, or rubs. RESPIRATORY: Breath sounds equal bilaterally. No accessory muscle use. GASTROINTESTINAL: Abdomen soft, non-tender, nondistended. MUSCULOSKELETAL: No cyanosis, or edema. BACK: Nontender without obvious deformity. No CVA tenderness. A/P Problem List: (1) Acute metabolic encephalopathy ICD Code: G93.41 Status: Acute (2) UTI (urinary tract infection) ICD Code: N39.0 Status: Acute (3) Hypokalemia ICD Code: E87.6 Status: Acute (4) Hypertension ICD Code: I10 Status: Acute (5) Iron (Fe) deficiency anemia ICD Code: D50.9 Status: Acute (6) DUB (dysfunctional uterine bleeding) ICD Code: N93.8 Status: Acute Assessment and Plan 56-year-old female with Acute metabolic encephalopathy-improving Head CT without any acute finding. Brain MRI today 02/25/17 without any evidence of new infarct Chest x-ray without any cardio pulmonary disease Monitor ammonia level UDS and alcohol level within normal limit UTI: Status post Rocephin IV 1 in ED, continue with Rocephin daily pending urine culture Acute renal failure Improving renal indices Appears to be prerenal Normal renal ultrasound Continue aggressive IV fluid hydration, avoid all nephrotoxic drugs including LEONARD inhibitor and hydrochlorothiazide Dysfunctional uterine bleed Patient states she is still having her menses at 56yrs Check pelvic ultrasound Consult gynecology Hypokalemia-resolved status post replacement Hyponatremia Resolved with IV fluid hydration Normochromic normocytic anemia-likely of chronic disease Iron deficiency anemia Transfuse Venofer 200mg IV x 1 now Hypertension Continue outpatient medications DVT prophylaxis: Bilateral SCDs Rick Hampton MD Feb 25, 2017 13:01
[2017-02-25] MEDS ORDERED: IRON SUCROSE 100 MG/5 ML VIAL IV PUSH ONE (13:15)
[2017-02-25] MEDS ORDERED: IRON SUCROSE INJ 200 MG in SODIUM CHLORIDE 0.9% INJ 100 ML IV ONE (14:00)
--- NOTE | 2017-02-25 20:35 | PD.CONS ---
HPI Chief Complaint Vaginal bleeding Date Seen: Feb 25, 2017 Travel History International Travel<30 Days: No Contact w/Intl Traveler<30Days: No Known Affected Area: No History of Present Illness HPI Patient's 56-year-old black female para 2 eyes in the hospital for dehydration of acute renal failure and acute mental status change. 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 The patient denies taking any hormonal medication Para: 2 : 2 History Past Medical History Narrative Medical Multiple medical problems Obstetric History Obstetric History 2 vaginal deliveries Social History Alcohol Use: No Tobacco Use: No Substance Abuse: No Allergies-Medications (Allergen,Severity, Reaction): Coded Allergies: No Known Allergies (Verified , 02/24/17) Home Meds Active Scripts Hydrochlorothiazide 25 Mg Tab25 Mg PO DAILY #30 TAB Ref 3 Prov:Patricia Tobar G[employer] COMPRESSOR OPERATOR 01/29/17 Lisinopril 40 Mg Tab40 Mg PO DAILY #30 TAB Ref 3 Prov:Patricia Tobar 01/29/17 Nystatin Topical 100,000 unit/gm Cream1 Applic TOPICAL BID #15 GM Ref 2 Prov:Patricia TobarP 01/29/17 Amlodipine 10 Mg Tab10 Mg PO DAILY #30 TAB Ref 3 Prov:Patricia Tobar 12/31/16 Review of Systems General / Constitutional: No: Fever, Weight Gain, Chills, Other Eyes: No: Diploplia, Blurred Vision, Visual changes, Pain, Photophobia HENT: No: Headaches, Vertigo, Lightheadedness Cardiovascular: No: Irregular Rhythm, Chest Pain or Discomfort, Palpitations, Tachycardia, Syncope, Varicosities, Edema, Cyanosis Respiratory: No: Cough, Short of Breath, Other Gastrointestinal: No: Nausea, Vomiting, Diarrhea Genitourinary: Vaginal Bleeding, No: Decreased Urinary Output, Oliguria Musculoskeletal: No: Limited ROM, Weakness, Cramping, Edema, Pain Skin: No Rash, No Itching, No Dryness, No Lumps, No Change in Pigmentation, No Change in Nails, No Alopecia, No Lesions Neurologic: No: Weakness, Dizziness, Syncope, Focal Abnormalities, Coordination Problem, Headache, Slurred Speech, Seizures Psychiatric: No: Depression, Suicidal Ideations, Homicidal Ideation Endocrine: No: Heat Intolerance, Cold Intolerance, Polydipsia, Polyuria, Other Physical Exam Vital Signs Date Time Temp Pulse Resp B/P Pulse Ox O2 Delivery O2 Flow Rate FiO2 02/25/17 16:00 98.4 66 20 149/81 98 02/25/17 12:00 98.1 70 20 150/68 99 02/25/17 08:00 98.5 65 20 105/55 98 02/25/17 05:01 99.0 70 18 101/59 97 02/25/17 00:59 98.9 68 18 99/55 97 02/24/17 23:00 73 02/24/17 21:16 97.3 71 18 133/63 96 Narrative GENERAL: Well-nourished, well-developed obese patient. That is somewhat confused and lethargic SKIN: Warm and dry. HEAD: Normocephalic and atraumatic. EYES: No scleral icterus. No injection or drainage. ENT: No nasal drainage noted. Mucous membranes pink. Airway patent. NECK: Supple, trachea midline. No JVD. CARDIOVASCULAR: Regular rate and rhythm without murmurs, gallops, or rubs. RESPIRATORY: Breath sounds equal bilaterally. No accessory muscle use. BREASTS: Bilateral exam showed no masses , no retractions, no nipple discharge. ABDOMEN/GI: Abdomen soft obese, non-tender, bowel sounds present, no rebound, no guarding GENITOURINARY: External Genitalia: intact and normal in appearance Small amount of dark blood noted at the introitus and in the vaginal vault no red bleeding or active bleeding noted Cervix: [-Palpates as normal with a slightly open external os closed internal os] Uterus palpates is slightly enlarged approximately 12 week size is 1+ tender anteflexed No adnexal mass palpated but the exam was compromised due to her size ] EXTREMITIES: No cyanosis or edema. BACK: Nontender without obvious deformity. No CVA tenderness. NEUROLOGICAL: Awake lethargic and somewhat confused. Data Data Orders Sleeve, Knee Sequential Erick Pr (02/24/17 23:06) Remove Urinary Catheter .ONCE (02/25/17 11:41) Ot Request For Service (02/25/17 11:41) Complete Blood Count With Diff (02/26/17 06:00) Basic Metabolic Panel (Bmp) (02/26/17 06:00) Us Pelvis Comp Garment Patternmaker/Non-Preg (02/25/17 ) Consult Gynecology (02/25/17 ) Iron Sucrose Inj (Venofer Inj) (02/25/17 14:00) (Hub Use Only)Inp Phy Cons/Ref (02/25/17 ) Labs Laboratory Tests Test 02/25/17 06:44 White Blood Count 9.8 Red Blood Count 3.86 Hemoglobin 8.5 Hematocrit 26.8 Mean Corpuscular Volume 69.3 Mean Corpuscular Hemoglobin 22.1 Mean Corpuscular Hemoglobin 31.9 Concent Red Cell Distribution Width 20.8 Platelet Count 334 Mean Platelet Volume 9.2 Neutrophils (%) (Auto) 58.8 Lymphocytes (%) (Auto) 30.0 Monocytes (%) (Auto) 10.0 Eosinophils (%) (Auto) 0.6 Basophils (%) (Auto) 0.6 Neutrophils # (Auto) 5.8 Lymphocytes # (Auto) 2.9 Monocytes # (Auto) 1.0 Eosinophils # (Auto) 0.1 Basophils # (Auto) 0.1 CBC Comment DIFF FINAL Differential Comment Sodium Level 140 Potassium Level 3.7 Chloride Level 110 Carbon Dioxide Level 19.8 Anion Gap 10 Blood Urea Nitrogen 38 Creatinine 1.63 Estimat Glomerular Filtration 39 Rate Random Glucose 104 Calcium Level 8.0 Total Bilirubin 0.3 Aspartate Amino Transf 9 (AST/SGOT) Alanine Aminotransferase 13 (ALT/SGPT) Alkaline Phosphatase 58 Total Protein 6.6 Albumin 2.2 Date/Time Procedure Status Source Growth 02/24/17 03:40 Urine Culture - Preliminary Resulted Urine Random Urine NO GROWTH IN 24 HOURS. MDM Interpretation(s) Patient's 56-year-old black female para 2 as the hospital for acute renal failure and acute mental status change and dehydration, she is also noted continued menstrual flow that she says is approximately every month but some months she'll skip or miss. Patient somewhat confused and lethargic and scarred to get a straight answer about really anything from her Plan Plan to check a pelvic ultrasound which is ordered and see what the anatomy looks like. Also check an FSH to see until hormonally what her ovarian reserve is. At this time if she just continues to have periods this will eventually stop, however very thickened endometrium noted or other masses noted that she may need further HYDROGEN [employer] OPERATIONS MANAGER evaluation as an outpatient possibly endometrial biopsy Admitting diagnosis: AMS, Acute renal failure Diagnosis: dysfunctional uterine bleeding Condition: Stable Jamey Whitley II, MD Feb 25, 2017 20:35
--- NOTE | 2017-02-25 21:52 | RADRPT ---
EXAM DATE/TIME: 02/25/2017 20:10 [facility] COMPARISON: US PELVIS COMP W/TRANSVAGINAL, January 18, 2017, 14:52. INDICATIONS : Irregular vaginal bleeding. MEDICAL HISTORY : Hypercholesterolemia. Hypertension. Cardiac disorders. Hyperlipidemia. Gastrointestinal ulcer. SURGICAL HISTORY : None. ENCOUNTER: Subsequent ACUITY: 1 week PAIN SCORE: 0/10 LOCATION: Bilateral pelvis MEASUREMENTS: RIGHT OVARY: 3.2 x 2.8 x 2.6 cm UTERUS: 13.7 x 9.3 x 8.2 cm ENDOMETRIAL STRIPE: 3 mm LEFT OVARY: Non visualized FINDINGS: The uterus is enlarged and heterogeneous with multiple suspected fibroids. Largest fibroid measures u p to 7 cm in diameter. The right ovary is unremarkable. Left ovary not visualized. No free fluid. End ometrial stripe within normal limits on current exam. CONCLUSION: 1. Enlarged uterus similar in appearance to January 18, 2017 most characteristic of fibroid involvement. No adnexal mass or free fluid. Cornelius Richmond MD on February 25, 2017 at 21:45 Board Certified Radiologist. This report was verified electronically.
[2017-02-26 00:03] VITALS: BP 134/76; PULSE 69; RESP 18; TEMP 98.5; O2SAT 100
[2017-02-26 04:00] VITALS: BP 126/66; PULSE 70; RESP 16; TEMP 98.6; O2SAT 98
[2017-02-26 07:00] VITALS: PULSE 69
[2017-02-26 08:00] VITALS: BP 163/75; PULSE 68; RESP 17; TEMP 98.1; O2SAT 98
[2017-02-26] MEDS: cefTRIAXone INJ 1,000 MG in SODIUM CHLORIDE 0.9% INJ 100 ML IV SCH (08:51)
[2017-02-26] MEDS: LACTOBACILLUS ACIDOPHILUS TAB PO SCH (08:52)
[2017-02-26] MEDS: SODIUM CHLORIDE 0.9% FLUSH 10 ML FLUSH IV FLUSH SCH (08:52)
[2017-02-26 09:38] LABS: AUTOMATED NEUTROPHIL # 3.6 TH/MM3 (1.8-7.7); BASOPHIL % 0.4 % (0.0-2.0); EOSINOPHIL # 0.1 TH/MM3 (0-0.4); HEMATOCRIT 27.4 % (35.0-46.0); HEMO FLAGS DIFF FINAL; LYMPH % 39.9 % (9.0-44.0); LYMPHOCYTE # 2.9 TH/MM3 (1.0-4.8); MEAN CELL VOLUME 71.2 FL (80.0-100.0); MEAN CORPUSCULAR HEMOGLOBIN 22.4 PG (27.0-34.0); MEAN CORPUSCULAR HGB CONC 31.5 % (32.0-36.0); MONO % 8.5 % (0.0-8.0); NEUT % 49.2 % (16.0-70.0); PLATELET COUNT 347 TH/MM3 (150-450); RED BLOOD COUNT 3.85 MIL/MM3 (4.00-5.30); RED CELL DISTRIBUTION WIDTH 21.9 % (11.6-17.2); WHITE BLOOD COUNT 7.2 TH/MM3 (4.0-11.0)
[2017-02-26 09:55] LABS: BICARBONATE 18.5 MEQ/L (21.0-32.0); POTASSIUM 3.7 MEQ/L (3.5-5.1)
[2017-02-26] MEDS: SODIUM CHLOR 0.9% 1000 ML INJ 1,000 ML IV SCH (10:00)
[2017-02-26 12:00] VITALS: BP 159/72; PULSE 71; RESP 17; TEMP 98.1; O2SAT 98
--- NOTE | 2017-02-26 12:35 | HHI.PR ---
Subjective Remarks Follow-up metabolic encephalopathy/acute renal failure 02/25/17-patient seen and examined, improving renal indices as well as mentation. Patient states she is still having her menses and she has not gone to menopause yet although she is 56 years old and she reports DUB 02/26/17-patient seen and examined, alert and oriented 3. Pelvic ultrasound with evidence of fibroid. Renal indices improved. Tolerated by mouth without any competition nausea and vomiting. Objective Vitals Vital Signs Date Time Temp Pulse Resp B/P Pulse Ox O2 Delivery O2 Flow Rate FiO2 02/26/17 12:00 98.1 71 17 159/72 98 02/26/17 08:00 98.1 68 17 163/75 98 02/26/17 07:00 69 02/26/17 04:00 98.6 70 16 126/66 98 02/26/17 00:03 98.5 69 18 134/76 100 02/25/17 22:40 68 02/25/17 21:26 98.2 77 18 131/67 99 02/25/17 16:00 98.4 66 20 149/81 98 I/O 02/25/17 02/25/17 02/25/17 02/26/17 02/26/17 02/26/17 07:00 15:00 23:00 07:00 15:00 23:00 Intake Total 240 ml Output Total 800 ml Balance -800 ml 240 ml Intake Oral 240 ml Output Urine Total 800 ml # Voids 1 # Bowel Movements 0 0 Result Diagram: 02/26/17 0852 02/26/17 0852 Imaging Last Impressions Pelvis Ultrasound 02/25/17 0000 Signed Impressions: Service Date/Time: January 20:10 - CONCLUSION: 1. Enlarged uterus similar in appearance to January 18, 2017 most characteristic of fibroid involvement. No adnexal mass or free fluid. Cornelius Richmond MD Brain MRI 02/25/17 0000 Signed Impressions: Service Date/Time: January 11:09 - CONCLUSION: 1. Scattered old tiny lacunar infarcts within the bilateral basal ganglia and left rupa. 2. Mild periventricular and subcortical white matter small vessel ischemic changes bilaterally. 3. No acute infarct, acute hemorrhage, mass effect or extra- axial fluid collections. Alex Castellano MD Head CT 02/24/17 0105 Signed Impressions: Service Date/Time: Friday, February 24, 2017 02:36 - CONCLUSION: No acute intracranial abnormality is identified. There is periventricular white matter low attenuation likely representing chronic microvascular ischemia. Neil Gaines MD Chest X-Ray 02/24/17 0105 Signed Impressions: Service Date/Time: Friday, February 24, 2017 01:04 - CONCLUSION: No acute cardiopulmonary abnormality is identified. Neil Gaines MD Renal Ultrasound 02/24/17 0000 Signed Impressions: Service Date/Time: Wednesday, February 24, 2017 09:59 - CONCLUSION: 1. Unremarkable renal ultrasound exam. No evidence for obstructive uropathy. Satnam Moulton MD Objective Remarks GENERAL: NAD SKIN: Warm and dry. HEAD: Normocephalic. EYES: No scleral icterus. No injection or drainage. NECK: Supple, trachea midline. No JVD or lymphadenopathy. CARDIOVASCULAR: Regular rate and rhythm without murmurs, gallops, or rubs. RESPIRATORY: Breath sounds equal bilaterally. No accessory muscle use. GASTROINTESTINAL: Abdomen soft, non-tender, nondistended. MUSCULOSKELETAL: No cyanosis, or edema. BACK: Nontender without obvious deformity. No CVA tenderness. Procedures None A/P Problem List: (1) Acute metabolic encephalopathy ICD Code: G93.41 Status: Resolved (2) UTI (urinary tract infection) ICD Code: N39.0 Status: Acute (3) Hypokalemia ICD Code: E87.6 Status: Acute (4) Hypertension ICD Code: I10 Status: Acute (5) Iron (Fe) deficiency anemia ICD Code: D50.9 Status: Acute (6) DUB (dysfunctional uterine bleeding) ICD Code: N93.8 Status: Acute Assessment and Plan 56-year-old female with Acute metabolic encephalopathy-resolved Head CT without any acute finding. Brain MRI today 02/25/17 without any evidence of new infarct Chest x-ray without any cardio pulmonary disease Monitor ammonia level UDS and alcohol level within normal limit UTI: Currently on Rocephin daily however urine culture negative, therefore will discontinue antibiotic. Acute renal failure Resolved Appears to be prerenal Normal renal ultrasound Continue aggressive IV fluid hydration, avoid all nephrotoxic drugs including LEONARD inhibitor and hydrochlorothiazide Dysfunctional uterine bleed Patient states she is still having her menses at 56yrs Pelvic ultrasound noted a review with finding of fibroids Appreciate input from gynecology; will need outpatient follow-up Hypokalemia-resolved status post replacement Hyponatremia Resolved with IV fluid hydration Normochromic normocytic anemia-likely of chronic disease Iron deficiency anemia Transfused Venofer 200mg IV x 1 now Hypertension Continue outpatient medications DVT prophylaxis: Bilateral SCDs Rick Hampton MD Feb 26, 2017 12:35
--- NOTE | 2017-02-26 12:38 | HHI.DS ---
Discharge Summary Admission Date Feb 24, 2017 at 04:01 Discharge Date: Feb 26, 2017 Admitting Diagnosis AMS, Acute renal failure (1) Acute metabolic encephalopathy ICD Code: G93.41 (2) UTI (urinary tract infection) ICD Code: N39.0 (3) Hypokalemia ICD Code: E87.6 (4) Hypertension ICD Code: I10 (5) Iron (Fe) deficiency anemia ICD Code: D50.9 (6) DUB (dysfunctional uterine bleeding) ICD Code: N93.8 Procedures None Brief History - From Admission 56-year-old female with a history of hypertension, hyperlipidemia was brought in yesterday to the ED for evaluation of worsening confusion and slurred speech by daughter as well as unsteadiness on her feet. Per EMR patient was confused and picking at the air, not acting like her usual septic cleaning. Apparently, patient has been complaining of stomach ache with nausea along with 1 emesis 1 on 02/23/17 however no reported diarrhea episodes. On admission patient has elevated WBC as well as BUN/creatinine 51/5.33. Head CT as well as chest x-ray was unremarkable however she had abnormal UA. During my exam, patient although slow in her Cerner she was alert and oriented to self but not to date. She denies any chest pain or shortness of breath. Vitals stable. CBC/BMP: 02/26/17 0852 02/26/17 0852 Significant Findings Laboratory Tests Test 02/24/17 02/24/17 02/24/17 02/24/17 01:19 02:45 03:40 14:36 White Blood Count 13.9 TH/MM3 (4.0-11.0) Hemoglobin 10.6 GM/DL (11.6-15.3) Hematocrit 32.7 % (35.0-46.0) Mean Corpuscular Volume 68.8 FL (80.0-100.0) Mean Corpuscular Hemoglobin 22.4 PG (27.0-34.0) Red Cell Distribution Width 21.4 % (11.6-17.2) Platelet Count 496 TH/MM3 (150-450) Monocytes (%) (Auto) 10.7 % (0.0-8.0) Neutrophils # (Auto) 9.2 TH/MM3 (1.8-7.7) Monocytes # (Auto) 1.5 TH/MM3 (0-0.9) Sodium Level 133 MEQ/L (136-145) Potassium Level 2.9 MEQ/L (3.5-5.1) Chloride Level 95 MEQ/L (98-107) Blood Urea Nitrogen 51 MG/DL (7-18) Creatinine 5.33 MG/DL (0.50-1.00) Estimat Glomerular Filtration 10 ML/MIN (>89) Rate Magnesium Level 3.4 MG/DL (1.5-2.5) Troponin I LESS THAN 0.02 NG/ML (0.02-0.05) Total Protein 8.9 GM/DL (6.4-8.2) Albumin 3.3 GM/DL (3.4-5.0) Thyroid Stimulating Hormone 0.169 uIU/ML 3rd Gen (0.358-3.740) Urine Turbidity CLOUDY (CLEAR) Urine Protein 100 mg/dL (NEG-TRACE) Urine Occult Blood LARGE (NEG) Urine Leukocyte Esterase MOD (NEG) Urine WBC 27 /hpf (0-5) Urine Bacteria MOD /hpf (NONE) Urine Mucus MANY /lpf (OCC) Iron Level 26 MCG/DL (50-170) Percent Iron Saturation 9.3 % (20-50) Ammonia 45 MCMOL/L (11-32) Test 02/25/17 02/26/17 06:44 08:52 Red Blood Count 3.86 MIL/MM3 3.85 MIL/MM3 (4.00-5.30) (4.00-5.30) Hemoglobin 8.5 GM/DL 8.6 GM/DL (11.6-15.3) (11.6-15.3) Hematocrit 26.8 % 27.4 % (35.0-46.0) (35.0-46.0) Mean Corpuscular Volume 69.3 FL 71.2 FL (80.0-100.0) (80.0-100.0) Mean Corpuscular Hemoglobin 22.1 PG 22.4 PG (27.0-34.0) (27.0-34.0) Mean Corpuscular Hemoglobin 31.9 % 31.5 % Concent (32.0-36.0) (32.0-36.0) Red Cell Distribution Width 20.8 % 21.9 % (11.6-17.2) (11.6-17.2) Monocytes (%) (Auto) 10.0 % 8.5 % (0.0-8.0) (0.0-8.0) Monocytes # (Auto) 1.0 TH/MM3 (0-0.9) Chloride Level 110 MEQ/L 111 MEQ/L (98-107) (98-107) Carbon Dioxide Level 19.8 MEQ/L 18.5 MEQ/L (21.0-32.0) (21.0-32.0) Blood Urea Nitrogen 38 MG/DL (7-18) Creatinine 1.63 MG/DL (0.50-1.00) Estimat Glomerular Filtration 39 ML/MIN (>89) 74 ML/MIN (>89) Rate Calcium Level 8.0 MG/DL 7.9 MG/DL (8.5-10.1) (8.5-10.1) Aspartate Amino Transf 9 U/L (15-37) (AST/SGOT) Albumin 2.2 GM/DL (3.4-5.0) Random Glucose 144 MG/DL (74-106) Ammonia 37 MCMOL/L (11-32) Imaging Last Impressions Pelvis Ultrasound 02/25/17 0000 Signed Impressions: Service Date/Time: January 20:10 - CONCLUSION: 1. Enlarged uterus similar in appearance to January 18, 2017 most characteristic of fibroid involvement. No adnexal mass or free fluid. Cornelius Richmond MD Brain MRI 02/25/17 0000 Signed Impressions: Service Date/Time: January 11:09 - CONCLUSION: 1. Scattered old tiny lacunar infarcts within the bilateral basal ganglia and left rupa. 2. Mild periventricular and subcortical white matter small vessel ischemic changes bilaterally. 3. No acute infarct, acute hemorrhage, mass effect or extra- axial fluid collections. Alex Castellano MD Head CT 02/24/17 0105 Signed Impressions: Service Date/Time: Friday, February 24, 2017 02:36 - CONCLUSION: No acute intracranial abnormality is identified. There is periventricular white matter low attenuation likely representing chronic microvascular ischemia. Neil Gaines MD Chest X-Ray 02/24/17 0105 Signed Impressions: Service Date/Time: Friday, February 24, 2017 01:04 - CONCLUSION: No acute cardiopulmonary abnormality is identified. Neil Gaines MD Renal Ultrasound 02/24/17 0000 Signed Impressions: Service Date/Time: Friday, February 24, 2017 09:59 - CONCLUSION: 1. Unremarkable renal ultrasound exam. No evidence for obstructive uropathy. Satnam Moulton MD PE at Discharge GENERAL: NAD SKIN: Warm and dry. HEAD: Normocephalic. EYES: No scleral icterus. No injection or drainage. NECK: Supple, trachea midline. No JVD or lymphadenopathy. CARDIOVASCULAR: Regular rate and rhythm without murmurs, gallops, or rubs. RESPIRATORY: Breath sounds equal bilaterally. No accessory muscle use. GASTROINTESTINAL: Abdomen soft, non-tender, nondistended. MUSCULOSKELETAL: No cyanosis, or edema. BACK: Nontender without obvious deformity. No CVA tenderness. Hospital Course Patient admitted secondary to metabolic encephalopathy which resolved. She was also treated for UTI will IV Rocephin however prior to discharge urine culture were negative and this was discontinued. Secondary to dysfunctional uterine bleed, gynecology was consulted and a pelvic ultrasound showed evidence of fibroid. Patient will need outpatient follow-up for evaluation for possible endometrial biopsy. She was transfused 200 mg Venofer second 2 iron deficiency anemia. Renal function improved with IV fluid hydration. She was continued on her treatment for her chronic medical conditions except LEONARD inhibitor. DVT and GI prophylaxis were provided. Prior to discharge, patient's condition improved and vitals remained stable. Pt Condition on Discharge: Stable Discharge Disposition: Discharge Home Discharge Time: <= 30 minutes Discharge Instructions DIET: Follow Instructions for: Heart Healthy Diet Activities you can perform: Regular-No Restrictions Follow up Referrals: [facility] PCP Follow-up - 1 Week Continued Medications: Amlodipine (Amlodipine) 10 Mg Tab 10 MG PO DAILY Blood Pressure Management #30 Ref 3 TAB Lisinopril (Lisinopril) 40 Mg Tab 40 MG PO DAILY Blood Pressure Management #30 Ref 3 TAB Nystatin Topical (Nystatin Topical) 100,000 unit/gm Cream 1 APPLIC TOPICAL BID Infection #15 Ref 2 GM Rick Hampton MD Feb 26, 2017 12:38
== END 2017-02-26 15:58 | disposition home or self-care (01) | DRG 71 ==
LOC: NEPE 00:07 → NEDA 04:01 → N05A 20:12
PROVIDERS: ADMIT Hospitalist; ATTEND Hospitalist
DX: G93.41 Metabolic encephalopathy (principal); N39.0 Urinary tract infection, site not specified; N17.9 Acute kidney failure, unspecified; E87.1 Hypo-osmolality and hyponatremia; I10 Essential (primary) hypertension; E87.6 Hypokalemia; D63.8 Anemia in other chronic diseases classified elsewhere; D50.9 Iron deficiency anemia, unspecified; E86.0 Dehydration; E78.5 Hyperlipidemia, unspecified; K21.9 Gastro-esophageal reflux disease without esophagitis; D25.9 Leiomyoma of uterus, unspecified; N93.8 Other specified abnormal uterine and vaginal bleeding
CPT/HCPCS: 70450; 70551; 71010; 76775; 76830; 76856; 76937; 80048; 80053; 80307; 81001; 82140; 82550; 82552; 83001; 83540; 83550; 83690; 83735; 83880; 84443; 84484; 85025; 85610; 85730; 86038; 86160; 87086; 93005; 96360; G8987-GP; G8988-GP; J0696; J1756; J7030; J7040; P9612

== ENCOUNTER → 2017-04-13 | Outpatient (CLI) | payer OTHER ==
[~2017-04-13] MED LIST changes: +FERR325T8 PO
[2017-04-13 10:43] LABS: HEMATOCRIT 32.6 % (35.0-46.0); MEAN CELL VOLUME 72.8 FL (80.0-100.0); MEAN CORPUSCULAR HEMOGLOBIN 22.9 PG (27.0-34.0); MEAN CORPUSCULAR HGB CONC 31.4 % (32.0-36.0); PLATELET COUNT 398 TH/MM3 (150-450); RED BLOOD COUNT 4.48 MIL/MM3 (4.00-5.30); RED CELL DISTRIBUTION WIDTH 22.7 % (11.6-17.2); REVIEW FLAG FINAL; WHITE BLOOD COUNT 7.3 TH/MM3 (4.0-11.0)
== END ==
LOC: CLAB 10:18
PROVIDERS: ATTEND Nurse Practitioner Family
DX: N93.8 Other specified abnormal uterine and vaginal bleeding (principal)
CPT/HCPCS: 36415; 85027